=== PATIENT | female | born 1955 | race Two or more races ===

== ENCOUNTER 2023-08-28 05:35 | Day surgery (SDC) | payer OTHER ==
[~2023-08-28] VITALS: Ht 167.6 cm; Wt 90.7 kg
[~2023-08-28 05:35] MED LIST: METFORMIN HCL500 M3 PO
[2023-08-28] MEDS ORDERED: CEFAZOLIN SODIUM 1,000 MG VIAL ONE (07:11)
[2023-08-28] MEDS ORDERED: ENOXAPARIN SODIUM 40 MG/0.4 ML SYRINGE SUBCUTANEO ONE ×2 (07:14→09:30)
[2023-08-28] MEDS ORDERED: EPINEPHRINE HCL/PF 1 MG/ML AMPUL ONE (07:30)
[2023-08-28] MEDS ORDERED: LIDOCAINE HCL/EPINEPHRINE 10MG/ML 1% 50ML IJ ONE ×3 (07:30→09:30)
[2023-08-28] MEDS ORDERED: EPINEPHRINE HCL/PF 1 MG/ML AMPUL IR ONE (09:30)
[2023-08-28] MEDS ORDERED: CEFAZOLIN SODIUM 1,000 MG VIAL IV ONE (09:30)
== END 2023-08-28 16:20 | disposition home or self-care (01) ==
LOC: CIR.AMB 05:35
PROVIDERS: ATTEND Specialist
DX: E65 Localized adiposity (principal); K42.9 Umbilical hernia without obstruction or gangrene; M62.08 Separation of muscle (nontraumatic), other site; L98.7 Excessive and redundant skin and subcutaneous tissue

== ENCOUNTER 2023-08-31 10:21 | Inpatient (IN) | payer OTHER ==
[~2023-08-31] VITALS: Ht 167.6 cm; Wt 95.3 kg
[2023-08-31] MEDS ORDERED: ENOXAPARIN SODIUM 100 MG/ML SYRINGE SUBCUTANEO ONE (11:00)
[2023-08-31] MEDS ORDERED: MIDAZOLAM HCL 100 MG in 0.9 % SODIUM CHLORIDE 100 ML IV SCH (11:15)
[2023-08-31] MEDS ORDERED: PROPOFOL 100 ML IV SCH (11:15)
[2023-08-31] MEDS ORDERED: 0.9 % SODIUM CHLORIDE 1,000 ML IV SCH ×2 (11:15→15:45)
[2023-08-31] MEDS ORDERED: PROPOFOL 10,000 MCG/ML VIAL IV PUSH ONE (11:15)
[2023-08-31 11:23] LABS: HEMATOCRIT 35.7 % (36.0-45.00); HEMOGLOBIN 12.1 g/dL (12.0-15.00); MEAN CORPUSCULAR HEMOGLOBIN 30.1 pg (27.00-32.0); MEAN CORPUSCULAR HGB CONC 33.8 g/dl (32.0-36.0); PLATELET COUNT 301 K/uL (150-450); RED BLOOD COUNT 4.01 M/uL (4.00-6.00); RED CELL DISTRIBUTION WIDTH 14.1 % (11.5-14.5)
[2023-08-31 11:23] LABS: ABG PO2 26.7 mmHg (80-100); ABG pCO2 52.8 mmHg (35-45); BASE EXCESS 0.3 mmol/l; SaO2 43.8 %
[2023-08-31 11:24] LABS: BICARBONATE 27.2 mmol/l (23-25); Tco2 28.9 mmol/l; allen test SATISFACTORY; o2 21 %; puncture site RADIAL LEFT
[2023-08-31 11:55] LABS: ALBUMIN 3.5 gm/dL (3.4-5.0); BILIRUBIN TOTAL 0.48 mg/dL (0.3-1.2); CALCIUM 9.1 mg/dL (8.5-10.1); CREATININE SERUM 0.7 mg/dL (0.55-1.02); GFR 83.21; GLOBULINA 5.2 G/DL (2.4-3.5); POTASSIUM 4.25 mEq/L (3.5-5.1); TOTAL PROTEIN 8.7 gm/dL (6.4-8.2)
[2023-08-31 13:14] LABS: ABG PH 7.512 (7.35-7.45); ABG PO2 168.9 mmHg (80-100); ABG pCO2 31.4 mmHg (35-45); BASE EXCESS 2.4 mmol/l; BICARBONATE 24.6 mmol/l (23-25); SaO2 99.6 %
[2023-08-31 13:15] LABS: Tco2 25.5 mmol/l; allen test SATISFACTORY; puncture site RADIAL LEFT
[2023-08-31 13:17] LABS: o2 100 %
[2023-08-31 14:23] LABS: D DIMER 2.23 MG/L; INR 1.08; PARTIAL THROMBOPLASTIN TIME 31.2 SECONDS (22.0-34.0); PROTHROMBIN TIME 11.3 SECONDS (9.0-11.5)
[2023-08-31] MEDS ORDERED: VANCOMYCIN HCL 1,000 MG VIAL IV ONE (15:45)
[2023-08-31] MEDS ORDERED: CEFEPIME HCL 1,000 MG in 0.9 % SODIUM CHLORIDE 50 ML IV ONE (15:45)
[2023-08-31] MEDS ORDERED: FUROsemide 20 MG/2 ML VIAL IV SCH (15:54)
[2023-08-31] MEDS ORDERED: VANCOMYCIN HCL 1,000 MG in 0.9 % SODIUM CHLORIDE 250 ML IV SCH ×2 (17:00→21:00)
[2023-08-31] MEDS ORDERED: CEFEPIME HCL 2,000 MG in DEXTROSE 5 % IN WATER 100 ML IV SCH (17:00)
[2023-08-31] MEDS ORDERED: IPRATROPIUM BROMIDE 0.5 MG/2.5 ML AMPUL.NEB IH SCH (17:00)
[2023-08-31] MEDS ORDERED: LEVALBUTEROL HCL 1.25 MG/3 ML SOLUTION IH SCH (17:00)
[2023-08-31] MEDS ORDERED: FAMOTIDINE/PF 20 MG in 0.9 % SODIUM CHLORIDE 100 ML IV SCH (21:00)
[2023-09-01] MEDS ORDERED: ENOXAPARIN SODIUM 40 MG/0.4 ML SYRINGE SUBCUTANEO SCH (09:00)
[2023-09-01 09:51] LABS: ABG PO2 156.7 mmHg (80-100); ABG pCO2 29.5 mmHg (35-45); BASE EXCESS 2.5 mmol/l; BICARBONATE 24.1 mmol/l (23-25); SaO2 99.6 %
[2023-09-01 09:53] LABS: allen test SATISFACTORY; o2 70 %; puncture site RADIAL RIGHT
[2023-09-01 14:38] LABS: PH,URINE 5.5 (5.0-8.0); URINE APPEARANCE Clear; URINE BILIRRUBIN Negative (NEGATIVE); URINE BLOOD Small; URINE COLOR Yellow; URINE LEUKOCYTE Moderate; URINE NITRATE Negative; URINE PROTEIN Negative (NEGATIVE); URINE UROBILINOGEN 0.2 E.U./dl
[2023-09-01 14:43] LABS: HEMATOCRIT 33.2 % (36.0-45.00); HEMOGLOBIN 11.3 g/dL (12.0-15.00); MEAN CELL VOLUME 88.9 fL (80.00-100.00); MEAN CORPUSCULAR HEMOGLOBIN 30.2 pg (27.00-32.0); PLATELET COUNT 284 K/uL (150-450); RED BLOOD COUNT 3.74 M/uL (4.00-6.00); RED CELL DISTRIBUTION WIDTH 14.1 % (11.5-14.5)
[2023-09-01 14:43] LABS: URINE BACTERIA 308.6 uL (0.0-1933); URINE EPITHELIAL CELLS 11.9 uL (0.0-38.8); URINE RBC 18.6 uL (0.0-20.8); URINE WBC 136.3 uL (0.0-23.2)
[2023-09-01 14:49] LABS: URINE GLUCOSE 250 MG/DL (NEGATIVE)
[2023-09-01 14:59] LABS: ALBUMIN 2.8 gm/dL (3.4-5.0); BILIRUBIN TOTAL 0.53 mg/dL (0.3-1.2); CALCIUM 8.7 mg/dL (8.5-10.1); CREATININE SERUM 0.57 mg/dL (0.55-1.02); GFR 105.48; GLOBULINA 4.3 G/DL (2.4-3.5); MAGNESIUM 1.9 mg/dL (1.8-2.4); PHOSPHOROUS 2.6 mg/dL (2.5-4.9); POTASSIUM 3.67 mEq/L (3.5-5.1); TOTAL PROTEIN 7.1 gm/dL (6.4-8.2)
[2023-09-01 15:03] LABS: C-REACTIVE PROTEIN 17.1 MG/DL (0.00-0.29)
[2023-09-01] MEDS ORDERED: METRONIDAZOLE/SODIUM CHLORIDE 100 ML IV SCH (17:00)
[2023-09-02 08:00] LABS: ABG PH 7.442 (7.35-7.45); ABG PO2 61.4 mmHg (80-100); ABG pCO2 37.5 mmHg (35-45); BASE EXCESS 1.1 mmol/l; SaO2 92.2 %; Tco2 26.2 mmol/l
[2023-09-02 08:01] LABS: allen test SATISFACTORY; o2 50 %; puncture site RADIAL RIGHT
[2023-09-02] MEDS ORDERED: FUROsemide 20 MG/2 ML VIAL IV SCH (09:00)
[2023-09-02] MEDS ORDERED: CHLORHEXIDINE GLUCONATE 120 ML BOTTLE TOP ONE (09:57)
[2023-09-02] MEDS ORDERED: POLYVINYL ALCOHOL 15 ML DROPS OP SCH (11:03)
[2023-09-02] MEDS ORDERED: CHLORHEXIDINE GLUCONATE 15ML BRUSH KIT MM SCH (11:03)
[2023-09-02 12:43] LABS: HEMATOCRIT 31.5 % (36.0-45.00); HEMOGLOBIN 10.5 g/dL (12.0-15.00); MEAN CELL VOLUME 87.4 fL (80.00-100.00); MEAN CORPUSCULAR HGB CONC 33.2 g/dl (32.0-36.0); PLATELET COUNT 290 K/uL (150-450); RED BLOOD COUNT 3.61 M/uL (4.00-6.00); RED CELL DISTRIBUTION WIDTH 14.7 % (11.5-14.5)
[2023-09-02 13:17] LABS: CALCIUM 7.9 mg/dL (8.5-10.1); CREATININE SERUM 0.5 mg/dL (0.55-1.02); GFR 122.69; PHOSPHOROUS 2.1 mg/dL (2.5-4.9); POTASSIUM 3.31 mEq/L (3.5-5.1)
[2023-09-02] MEDS ORDERED: POTASSIUM CHLORIDE IN WATER 100 ML IV ONE (14:45)
[2023-09-02] MEDS ORDERED: POTASSIUM PHOS,M-BASIC-D-BASIC 3 MM/ML VIAL IV ONE (16:00)
[2023-09-02] MEDS ORDERED: CARBOXYMETHYLCELLULOSE SODIUM 1 EACH DROPERETTE OP SCH (17:00)
[2023-09-03 13:24] LABS: ABG PH 7.374 (7.35-7.45); ABG pCO2 43.6 mmHg (35-45)
[2023-09-03 13:25] LABS: ABG PO2 76.3 mmHg (80-100); BASE EXCESS -0.6 mmol/l; BICARBONATE 24.9 mmol/l (23-25); SaO2 94.7 %; Tco2 26.2 mmol/l; allen test SATISFACTORY; o2 50 %; puncture site RADIAL RIGHT
[2023-09-03 14:02] LABS: HEMATOCRIT 30.1 % (36.0-45.00); MEAN CELL VOLUME 89.3 fL (80.00-100.00); MEAN CORPUSCULAR HEMOGLOBIN 29.6 pg (27.00-32.0); MEAN CORPUSCULAR HGB CONC 33.1 g/dl (32.0-36.0); PLATELET COUNT 315 K/uL (150-450); RED BLOOD COUNT 3.37 M/uL (4.00-6.00); RED CELL DISTRIBUTION WIDTH 14.6 % (11.5-14.5)
[2023-09-03 14:48] LABS: CALCIUM 8.3 mg/dL (8.5-10.1); CREATININE SERUM 0.44 mg/dL (0.55-1.02); GFR 142.2; MAGNESIUM 2.1 mg/dL (1.8-2.4); PHOSPHOROUS 2.2 mg/dL (2.5-4.9); POTASSIUM 3.63 mEq/L (3.5-5.1)
[2023-09-03] MEDS ORDERED: VANCOMYCIN HCL 1,250 MG in 0.9 % SODIUM CHLORIDE 250 ML IV SCH (17:00)
[2023-09-03] MEDS ORDERED: POLYETHYLENE GLYCOL 3350 17 GM BLIST.PACK PO SCH (17:00)
[2023-09-03] MEDS ORDERED: VANCOMYCIN HCL 5 MG/ML REDILUIDO IV SCH (17:00)
[2023-09-03 22:50] LABS: ABG PH 7.402 (7.35-7.45); ABG PO2 166.7 mmHg (80-100); ABG pCO2 39.1 mmHg (35-45); BASE EXCESS -0.8 mmol/l; BICARBONATE 23.8 mmol/l (23-25); SaO2 99.9 %; allen test SATISFACTORY; o2 100 %; puncture site RADIAL LEFT
[2023-09-04 06:44] LABS: HEMATOCRIT 28.5 % (36.0-45.00); HEMOGLOBIN 9.5 g/dL (12.0-15.00); MEAN CELL VOLUME 89.7 fL (80.00-100.00); MEAN CORPUSCULAR HEMOGLOBIN 29.9 pg (27.00-32.0); MEAN CORPUSCULAR HGB CONC 33.3 g/dl (32.0-36.0); PLATELET COUNT 320 K/uL (150-450); RED BLOOD COUNT 3.18 M/uL (4.00-6.00); RED CELL DISTRIBUTION WIDTH 14.6 % (11.5-14.5)
[2023-09-04 07:07] LABS: CREATININE SERUM 0.4 mg/dL (0.55-1.02); GFR 158.73; POTASSIUM 3.69 mEq/L (3.5-5.1)
[2023-09-04 08:35] LABS: ABG PH 7.431 (7.35-7.45); ABG pCO2 39.9 mmHg (35-45)
[2023-09-04 08:36] LABS: ABG PO2 112.6 mmHg (80-100); BASE EXCESS 1.6 mmol/l; BICARBONATE 25.9 mmol/l (23-25); SaO2 98.5 %; Tco2 27.1 mmol/l; allen test SATISFACTORY; puncture site RADIAL RIGHT
[2023-09-04 08:37] LABS: o2 70 %
[2023-09-05 06:22] LABS: ABG PH 7.454 (7.35-7.45); ABG PO2 130.5 mmHg (80-100); ABG pCO2 40.6 mmHg (35-45); BASE EXCESS 3.6 mmol/l; BICARBONATE 27.8 mmol/l (23-25); SaO2 99.1 %
[2023-09-05 06:23] LABS: Tco2 28.1 mmol/l; allen test SATISFACTORY; o2 50 %; puncture site RADIAL RIGHT
[2023-09-06 06:55] LABS: ABG PH 7.442 (7.35-7.45); ABG PO2 97.3 mmHg (80-100); ABG pCO2 44.9 mmHg (35-45); BICARBONATE 29.9 mmol/l (23-25); SaO2 97.9 %; Tco2 31.3 mmol/l; allen test SATISFACTORY; o2 40 %; puncture site RADIAL RIGHT
[2023-09-06 06:59] LABS: HEMATOCRIT 25.3 % (36.0-45.00); HEMOGLOBIN 8.9 g/dL (12.0-15.00); MEAN CELL VOLUME 89.3 fL (80.00-100.00); MEAN CORPUSCULAR HEMOGLOBIN 31.4 pg (27.00-32.0); MEAN CORPUSCULAR HGB CONC 35.2 g/dl (32.0-36.0); PLATELET COUNT 303 K/uL (150-450); RED BLOOD COUNT 2.83 M/uL (4.00-6.00); RED CELL DISTRIBUTION WIDTH 14.6 % (11.5-14.5)
[2023-09-06 07:18] LABS: CALCIUM 7.6 mg/dL (8.5-10.1); CREATININE SERUM 0.32 mg/dL (0.55-1.02); GFR 205.35; MAGNESIUM 1.7 mg/dL (1.8-2.4); POTASSIUM 3.18 mEq/L (3.5-5.1)
[2023-09-06] MEDS ORDERED: BACITRACIN 28.35 GM OINT.TUBE TOP ONE (08:26)
[2023-09-06 08:29] LABS: PHOSPHOROUS 1.8 mg/dL (2.5-4.9)
[2023-09-06] MEDS ORDERED: BACITRACIN ZINC 0.9 GM OINT.PACKET TOP ONE (08:30)
[2023-09-06] MEDS ORDERED: POTASSIUM PHOS,M-BASIC-D-BASIC 3 MM/ML VIAL IV ONE (09:00)
[2023-09-06] MEDS ORDERED: MAGNESIUM SULFATE IN WATER 4 GM/100 ML PIGGYBACK IV ONE (12:15)
[2023-09-06] MEDS ORDERED: FUROsemide 20 MG/2 ML VIAL IV SCH (21:00)
[2023-09-07 07:18] LABS: HEMATOCRIT 29.9 % (36.0-45.00); MEAN CELL VOLUME 89.2 fL (80.00-100.00); MEAN CORPUSCULAR HEMOGLOBIN 29.9 pg (27.00-32.0); MEAN CORPUSCULAR HGB CONC 33.5 g/dl (32.0-36.0); PLATELET COUNT 346 K/uL (150-450); RED BLOOD COUNT 3.35 M/uL (4.00-6.00); RED CELL DISTRIBUTION WIDTH 14.2 % (11.5-14.5)
[2023-09-07 07:51] LABS: CALCIUM 7.6 mg/dL (8.5-10.1); GFR 239.56; POTASSIUM 3.14 mEq/L (3.5-5.1)
[2023-09-07 07:59] LABS: CREATININE SERUM 0.28 mg/dL (0.55-1.02)
[2023-09-07 09:50] LABS: ABG PH 7.435 (7.35-7.45); ABG pCO2 52.7 mmHg (35-45); BASE EXCESS 8.5 mmol/l; BICARBONATE 34.5 mmol/l (23-25); SaO2 99.6 %; Tco2 36.2 mmol/l; o2 100 %
[2023-09-07 09:51] LABS: allen test SATISFACTORY; puncture site RADIAL RIGHT
[2023-09-07] MEDS ORDERED: POTASSIUM CHLORIDE 20MEQ/100ML H2O PB IV ONE (11:30)
[2023-09-07] MEDS ORDERED: PHENOL 177 ML BOTTLE MM PRN (13:45)
[2023-09-08] MEDS ORDERED: DEXTROSE 50 % IN WATER 0.5 G/ML DISP.SYRIN IV PRN (12:45)
[2023-09-08] MEDS ORDERED: INSULIN LISPRO 1,000 UNIT/10 ML UNITS SUBCUTANEO PRN (12:45)
[2023-09-08] MEDS ORDERED: TRAMADOL HCL 50 MG TABLET PO PRN (12:45)
[2023-09-08] MEDS ORDERED: ANIDULAFUNGIN 100 MG VIAL IV ONE (14:00)
[2023-09-08] MEDS ORDERED: VANCOMYCIN HCL 5 MG/ML REDILUIDO IV SCH (17:00)
[2023-09-09] MEDS ORDERED: ANIDULAFUNGIN 100 MG VIAL IV SCH (12:00)
[2023-09-10 06:54] LABS: HEMATOCRIT 29.9 % (36.0-45.00); HEMOGLOBIN 10.2 g/dL (12.0-15.00); MEAN CELL VOLUME 87.3 fL (80.00-100.00); MEAN CORPUSCULAR HEMOGLOBIN 29.6 pg (27.00-32.0); MEAN CORPUSCULAR HGB CONC 33.9 g/dl (32.0-36.0); PLATELET COUNT 398 K/uL (150-450); RED BLOOD COUNT 3.43 M/uL (4.00-6.00); RED CELL DISTRIBUTION WIDTH 14.4 % (11.5-14.5)
[2023-09-10 07:17] LABS: ALBUMIN 2.2 gm/dL (3.4-5.0); BILIRUBIN TOTAL 0.5 mg/dL (0.3-1.2); CALCIUM 7.6 mg/dL (8.5-10.1); CREATININE SERUM 0.38 mg/dL (0.55-1.02); GFR 168.41; GLOBULINA 3.7 G/DL (2.4-3.5); TOTAL PROTEIN 5.9 gm/dL (6.4-8.2)
[2023-09-10 07:26] LABS: PHOSPHOROUS 2.7 mg/dL (2.5-4.9)
[2023-09-10 07:37] LABS: C-REACTIVE PROTEIN 3.5 MG/DL (0.00-0.29)
[2023-09-10 07:38] LABS: POTASSIUM 2.91 mEq/L (3.5-5.1)
[2023-09-10] MEDS ORDERED: MAGNESIUM SULFATE IN WATER 50 ML IV ONE (09:00)
[2023-09-10] MEDS ORDERED: POTASSIUM CHLORIDE IN WATER 100 ML IV SCH (13:00)
[2023-09-10] MEDS ORDERED: LACTOBACILLUS ACIDOPHILUS 1 CAP CAP PO SCH (17:00)
[2023-09-11 07:03] LABS: ALBUMIN 1.9 gm/dL (3.4-5.0); BILIRUBIN TOTAL 0.33 mg/dL (0.3-1.2); CREATININE SERUM 0.34 mg/dL (0.55-1.02); GFR 191.47; GLOBULINA 3.6 G/DL (2.4-3.5); MAGNESIUM 1.9 mg/dL (1.8-2.4); PHOSPHOROUS 2.2 mg/dL (2.5-4.9); TOTAL PROTEIN 5.5 gm/dL (6.4-8.2)
[2023-09-11 07:19] LABS: CALCIUM 6.9 mg/dL (8.5-10.1)
[2023-09-11 07:20] LABS: POTASSIUM 2.69 mEq/L (3.5-5.1)
[2023-09-11] MEDS ORDERED: POTASSIUM CHLORIDE 20MEQ/100ML H2O PB IV SCH (08:00)
[2023-09-11] MEDS ORDERED: POTASSIUM PHOS,M-BASIC-D-BASIC 3 MM/ML VIAL IV ONE (12:00)
[2023-09-11] MEDS ORDERED: TRAMADOL HCL 50 MG TABLET PO PRN (13:00)
[2023-09-11] MEDS ORDERED: INSULIN GLARGINE,HUM.REC.ANLOG 1,000 UNITS/10 ML UNITS SUBCUTANEO SCH (17:00)
[2023-09-11] MEDS ORDERED: INSULIN LISPRO 1,000 UNIT/10 ML UNITS SUBCUTANEO SCH (17:00)
[2023-09-12 08:07] LABS: ALBUMIN 2.2 gm/dL (3.4-5.0); BILIRUBIN TOTAL 0.46 mg/dL (0.3-1.2); CALCIUM 8.2 mg/dL (8.5-10.1); CREATININE SERUM 0.45 mg/dL (0.55-1.02); GFR 138.56; GLOBULINA 3.7 G/DL (2.4-3.5); PHOSPHOROUS 2.7 mg/dL (2.5-4.9); POTASSIUM 4.08 mEq/L (3.5-5.1); TOTAL PROTEIN 5.9 gm/dL (6.4-8.2)
[2023-09-12] MEDS ORDERED: FUROsemide 20 MG/2 ML VIAL IV SCH ×2 (09:00→21:00)
[2023-09-12] MEDS ORDERED: SPIRONOLACTONE 25 MG TABLET PO SCH (14:12)
[2023-09-12] MEDS ORDERED: FAMOtidine 20 MG TABLET PO SCH (21:00)
[2023-09-13] MEDS ORDERED: INSULIN LISPRO 1,000 UNIT/10 ML UNITS SUBCUTANEO SCH (08:00)
[2023-09-13] MEDS ORDERED: ACETAMINOPHEN 325 MG TABLET PO ONE (13:00)
[2023-09-14 06:16] LABS: HEMATOCRIT 31.9 % (36.0-45.00); HEMOGLOBIN 10.6 g/dL (12.0-15.00); MEAN CELL VOLUME 88.1 fL (80.00-100.00); MEAN CORPUSCULAR HEMOGLOBIN 29.3 pg (27.00-32.0); MEAN CORPUSCULAR HGB CONC 33.2 g/dl (32.0-36.0); PLATELET COUNT 524 K/uL (150-450); RED BLOOD COUNT 3.62 M/uL (4.00-6.00); RED CELL DISTRIBUTION WIDTH 14.9 % (11.5-14.5)
[2023-09-14 07:13] LABS: ALBUMIN 2.5 gm/dL (3.4-5.0); BILIRUBIN TOTAL 0.51 mg/dL (0.3-1.2); CREATININE SERUM 0.46 mg/dL (0.55-1.02); GFR 135.09; PHOSPHOROUS 3.5 mg/dL (2.5-4.9); POTASSIUM 3.71 mEq/L (3.5-5.1); TOTAL PROTEIN 6.5 gm/dL (6.4-8.2)
[2023-09-14 07:44] LABS: ABG PH 7.476 (7.35-7.45); ABG PO2 62.9 mmHg (80-100); ABG pCO2 45.4 mmHg (35-45); BICARBONATE 32.8 mmol/l (23-25); SaO2 93.8 %; Tco2 34.2 mmol/l
[2023-09-14 07:46] LABS: allen test SATISFACTORY; o2 32 %; puncture site RADIAL RIGHT
[2023-09-14] MEDS ORDERED: INSULIN LISPRO 1,000 UNIT/10 ML UNITS SUBCUTANEO SCH (08:00)
[2023-09-14 23:24] LABS: ABG PH 7.509 (7.35-7.45); ABG PO2 46.6 mmHg (80-100); ABG pCO2 43.1 mmHg (35-45)
[2023-09-14 23:25] LABS: BASE EXCESS 9.4 mmol/l; BICARBONATE 33.5 mmol/l (23-25); SaO2 87.7 %; Tco2 34.8 mmol/l; allen test SATISFACTORY; o2 21 %; puncture site RADIAL RIGHT
[2023-09-15] MEDS ORDERED: INSULIN GLARGINE,HUM.REC.ANLOG 1,000 UNITS/10 ML UNITS SUBCUTANEO SCH (17:00)
== END 2023-09-16 17:37 | disposition home or self-care (01) | DRG 208 ==
LOC: ER 10:21 → ICU-2 16:08 → ICU 09-01 19:01 → SURH 09-14 20:40
PROVIDERS: General Practice; Internal Medicine; Internal Medicine Critical Care Medicine; Internal Medicine Geriatric Medicine; Internal Medicine Infectious Disease; ADMIT Internal Medicine; ATTEND Internal Medicine
PROC: 5A1945Z Respiratory Ventilation, 24-96 Consecutive Hours (ICD-10-PCS; principal; 2023-08-31)
PROC: 0BH17EZ Insertion of Endotracheal Airway into Trachea, Via Natural or Artificial Opening (ICD-10-PCS; 2023-08-31)
PROC: BB24YZZ Computerized Tomography (CT Scan) of Bilateral Lungs using Other Contrast (ICD-10-PCS; 2023-08-31)
PROC: B246ZZZ Ultrasonography of Right and Left Heart (ICD-10-PCS; 2023-08-31)
PROC: 3E0F7GC Introduction of Other Therapeutic Substance into Respiratory Tract, Via Natural or Artificial Opening (ICD-10-PCS; 2023-08-31)
PROC: 0DH67UZ Insertion of Feeding Device into Stomach, Via Natural or Artificial Opening (ICD-10-PCS; 2023-09-02)
PROC: 4A12X4Z Monitoring of Cardiac Electrical Activity, External Approach (ICD-10-PCS; 2023-09-02)
PROC: BW21YZZ Computerized Tomography (CT Scan) of Abdomen and Pelvis using Other Contrast (ICD-10-PCS; 2023-09-02)
PROC: 02HV33Z Insertion of Infusion Device into Superior Vena Cava, Percutaneous Approach (ICD-10-PCS; 2023-09-02)
PROC: 3E0G76Z Introduction of Nutritional Substance into Upper GI, Via Natural or Artificial Opening (ICD-10-PCS; 2023-09-04)
PROC: BB24YZZ Computerized Tomography (CT Scan) of Bilateral Lungs using Other Contrast (ICD-10-PCS; 2023-09-12)
PROC: B246ZZZ Ultrasonography of Right and Left Heart (ICD-10-PCS; 2023-09-12)
DX: J95.821 Acute postprocedural respiratory failure (principal); J18.1 Lobar pneumonia, unspecified organism; J80 Acute respiratory distress syndrome; J95.89 Other postprocedural complications and disorders of respiratory system, not elsewhere classified; K91.89 Other postprocedural complications and disorders of digestive system; K56.7 Ileus, unspecified; E87.1 Hypo-osmolality and hyponatremia; B37.49 Other urogenital candidiasis; B37.0 Candidal stomatitis; E87.6 Hypokalemia; E11.65 Type 2 diabetes mellitus with hyperglycemia; Z79.84 Long term (current) use of oral hypoglycemic drugs